=== PATIENT | female | born 1955 | race Caucasian/White ===

== ENCOUNTER 2022-01-06 08:53 | Outpatient (CLI) | payer MEDICARE | END 2022-01-06 08:54 | disposition home or self-care (01) | LOC: CSHMRI 08:53 | PROVIDERS: ATTEND Internal Medicine Hematology & Oncology | DX: M85.80 Other specified disorders of bone density and structure, unspecified site (principal); Z85.3 Personal history of malignant neoplasm of breast; Z15.01 Genetic susceptibility to malignant neoplasm of breast | CPT/HCPCS: 82565; C8908 ==

== ENCOUNTER 2022-01-15 14:46 | Outpatient (CLI) | payer MEDICARE | END 2022-01-15 14:47 | disposition home or self-care (01) | LOC: CSHMAMMO 14:46 | PROVIDERS: ATTEND Internal Medicine Hematology & Oncology | DX: M85.89 Other specified disorders of bone density and structure, multiple sites (principal); T38.6X5A Adverse effect of antigonadotrophins, antiestrogens, antiandrogens, not elsewhere classified, initial encounter | CPT/HCPCS: 77080 ==

== ENCOUNTER 2022-10-09 13:51 | Outpatient (CLI) | payer MEDICARE | END 2022-10-09 13:52 | disposition home or self-care (01) | LOC: CSHULT 13:51 | PROVIDERS: ATTEND Plastic Surgery | DX: N63.22 Unspecified lump in the left breast, upper inner quadrant (principal); Z85.3 Personal history of malignant neoplasm of breast ==

== ENCOUNTER 2022-12-22 08:43 | Outpatient (CLI) | payer MEDICARE | END 2022-12-22 08:44 | disposition home or self-care (01) | LOC: CSHULT 08:43 | PROVIDERS: ATTEND Plastic Surgery | DX: N63.22 Unspecified lump in the left breast, upper inner quadrant (principal); Z85.3 Personal history of malignant neoplasm of breast | CPT/HCPCS: 76642; 77065; G0279 ==